=== PATIENT | male | born 1960 | race Caucasian/White ===

== ENCOUNTER 2017-03-03 10:41 | Inpatient (IN) | payer SELFPAY ==
[2017-03-03] VITALS (7 sets, daily range): BP systolic 101–154; BP diastolic 61–84
[~2017-03-03] VITALS: Ht 177.8 cm; Wt 98.1 kg
[~2017-03-03 10:41] MED LIST: AMOX-291 PO; CLAR500T3 PO; ESOM40CA PO; FERR324T10 PO; FERR325T20 PO; LANS30CA PO; LEVO200T PO; LEVO200T23 PO
[2017-03-03] MEDS ORDERED: FAMOTIDINE 20 MG/2 ML ONE (11:49)
[2017-03-03] MEDS ORDERED: SODIUM CHLORIDE FLUSH 10ML SYR IVF ONE (12:00)
[2017-03-03] MEDS ORDERED: SODIUM CHLORIDE 0.9% 1,000ML IVBOLUS ONE (12:00)
[2017-03-03] MEDS ORDERED: FAMOTIDINE 20 MG/2 ML IVPush ONE (12:00)
[2017-03-03 12:23] LABS: ASPARTATE AMINO TRANSFERASE 41 U/L (15-37); BLOOD UREA NITROGEN 13 mg/dL (7-18)
[2017-03-03 12:48] LABS: DIFF TOTAL CELLS COUNTED 100 CELL DIFF
[2017-03-03 12:50] LABS: ANISOCYTOSIS 1+; VERIFY COUNTS? YES
[2017-03-03 12:51] LABS: HYPOCHROMIA 2+; MICROCYTOSIS 2+; OVALOCYTES 2+
[2017-03-03 12:52] LABS: POIKILOCYTOSIS 1+
[2017-03-03 12:54] LABS: POLYCHROMASIA 1+
[2017-03-03] MEDS ORDERED: NS + 20MEQ KCL 1,000 ML IV SCH (14:28)
[2017-03-03] MEDS ORDERED: MORPHINE SULFATE 4 MG/ML, 1ML IVPush PRN (14:30)
[2017-03-03] MEDS ORDERED: POLYETHYLENE GLYCOL 17 GM PACKET PO PRN (14:30)
[2017-03-03] MEDS ORDERED: HYDROcodone/APAP 5/325 TABLET PO PRN (14:30)
[2017-03-03] MEDS ORDERED: ACETAMINOPHEN 325 MG TABLET PO PRN (14:30)
[2017-03-03] MEDS ORDERED: ONDANSETRON 2MG/ML, 2ML IVP PRN (14:30)
[2017-03-03] MEDS ORDERED: DOCUSATE 100 MG CAPSULE PO PRN (14:30)
[2017-03-04 02:44] VITALS: BP 123/74
[2017-03-04] MEDS: LEVOTHYROXINE 200 MCG TABLET PO SCH (05:55)
[2017-03-04 06:06] LABS: BLOOD UREA NITROGEN 14 mg/dL (7-18)
[2017-03-04 06:50] VITALS: BP 123/80
[2017-03-04 12:26] VITALS: BP 128/77
[2017-03-04] MEDS: IRON SUCROSE COMPLEX 100MG/5ML IV SCH (15:20)
[2017-03-04] MEDS ORDERED: MOVIPREP POWDER 1 PREP KIT PO ONE (18:00)
[2017-03-05] MEDS: LEVOTHYROXINE 200 MCG TABLET PO SCH (05:23)
[2017-03-05 07:10] VITALS: BP 123/76
[2017-03-05 07:18] LABS: ANISOCYTOSIS 2+; HYPOCHROMIA 2+; MICROCYTOSIS 2+; OVALOCYTES 2+; POLYCHROMASIA 2+
[2017-03-05] MEDS: IRON SUCROSE COMPLEX 100MG/5ML IV SCH (08:30)
[2017-03-05] MEDS ORDERED: MIDAZOLAM 1 MG/ML, 5ML ONE (10:02)
[2017-03-05] MEDS ORDERED: FENTANYL PF 100 MCG/2ML ONE (10:02)
[2017-03-05] MEDS ORDERED: MOVIPREP POWDER 1 PREP KIT PO ONE (11:00)
[2017-03-05 12:55] VITALS: BP 121/68
[2017-03-05] MEDS ORDERED: LEVO200T PO (14:50)
[2017-03-05] MEDS ORDERED: FERR324T10 PO (14:50)
== END 2017-03-05 15:37 | disposition home or self-care (01) | DRG 379 ==
LOC: ED 12:24 → EDIP 12:25 → ED 12:33 → 3NE 13:19
PROVIDERS: ADMIT Internal Medicine; ATTEND Family Medicine
PROC: 30233N1 Transfusion of Nonautologous Red Blood Cells into Peripheral Vein, Percutaneous Approach (ICD-10-PCS; principal; 2017-03-03)
PROC: 0DB68ZX Excision of Stomach, Via Natural or Artificial Opening Endoscopic, Diagnostic (ICD-10-PCS; 2017-03-05)
PROC: 0DJD8ZZ Inspection of Lower Intestinal Tract, Via Natural or Artificial Opening Endoscopic (ICD-10-PCS; 2017-03-05)
PROC: 0DB98ZX Excision of Duodenum, Via Natural or Artificial Opening Endoscopic, Diagnostic (ICD-10-PCS; 2017-03-05)
DX: K92.2 Gastrointestinal hemorrhage, unspecified (principal); E03.9 Hypothyroidism, unspecified; E78.5 Hyperlipidemia, unspecified; N18.3 Chronic kidney disease, stage 3 (moderate); F12.90 Cannabis use, unspecified, uncomplicated; K29.40 Chronic atrophic gastritis without bleeding; K64.4 Residual hemorrhoidal skin tags; D50.0 Iron deficiency anemia secondary to blood loss (chronic); Z82.5 Family history of asthma and other chronic lower respiratory diseases; Z91.19 Patient's noncompliance with other medical treatment and regimen; Z86.19 Personal history of other infectious and parasitic diseases
CPT/HCPCS: 36415; 80048; 80053; 82728; 83540; 83550; 83605; 84466; 85025; 85610; 85730; 86677; 86850; 86870; 86900; 86902; 86922; 86923; 88305; 96361; 96374; J1756; J2250; J3010; J3480; J7030; P9016; S0028